=== PATIENT | female | born 1995 | race Caucasian/White ===

== ENCOUNTER 2017-03-08 14:39 | Emergency (ER) | payer OTHER ==
[~2017-03-08] VITALS: Ht 160 cm; Wt 76.0 kg
[2017-03-08 14:41] VITALS: BP 135/72
== END 2017-03-08 20:00 | disposition left against medical advice (07) ==
LOC: ER 15:43
DX: R07.2 Precordial pain (principal); Z53.21 Procedure and treatment not carried out due to patient leaving prior to being seen by health care provider